=== PATIENT | male | born 1955 | race Caucasian/White ===

== ENCOUNTER 2019-03-28 23:06 | Emergency (ER) | payer OTHER ==
[~2019-03-28] VITALS: Ht 180.3 cm; Wt 95.0 kg
[2019-03-28] MEDS ORDERED: albuterol 2.5 MG/3 ML nebule NEB ONE (23:45)
[2019-03-28] MEDS ORDERED: methylPREDNISolone sod succ 125mg/2ml vial IV ONE (23:50)
[2019-03-28] MEDS ORDERED: normal saline 1000ML IV soln IVB ONE (23:50)
[2019-03-28] MEDS ORDERED: albuterol 2.5 mg/0.5ml nebule NEB ONE (23:50)
[2019-03-28] MEDS ORDERED: albuterol 2.5 MG/3 ML nebule ONE (23:58)
[2019-03-29] MEDS ORDERED: chlordiazePOXIDE 25mg capsule PO ONE (01:00)
[2019-03-29 01:04] LABS: RED CELL DISTRIBUTION WIDTH 13.9 % (11.5-14.5)
[2019-03-29 01:06] LABS: BASOPHILS % (AUTO) 0.6 % (0-1); EOSINOPHILS # (AUTO) 0.5 X10'3 (0-0.9); HEMATOCRIT 48.7 % (42.0-52.0); HEMOGLOBIN 16.6 g/dl (14.0-17.9); LYMPHOCYTES # (AUTO) 4.2 X10'3 (1.1-4.8); LYMPHOCYTES % (AUTO) 53.4 % (21-51); MEAN CORPUSCULAR HEMOGLOBIN 31.7 PG (27.0-31.0); MEAN CORPUSCULAR HGB CONC 34.1 g/dL (33.0-36.5); MEAN CORPUSCULAR VOLUME 93.2 FL (78-98); MEAN PLATELET VOLUME 8.1 FL (7.4-10.4); MONOCYTES # (AUTO) 0.8 X10'3 (0-0.9); MONOCYTES % (AUTO) 9.6 % (2-12); NEUTROPHILS # (AUTO) 2.3 X10'3 (1.8-7.7); NEUTROPHILS % (AUTO) 29.4 % (42-75); PLATELET COUNT 251 X10'3 (140-440); RED BLOOD COUNT 5.23 X10'6 (4.70-6.10); WHITE BLOOD COUNT 7.8 X10'3 (4.5-11.0)
[2019-03-29 01:13] LABS: PARTIAL THROMBOPLASTIN TIME 33 SECONDS (22-32)
[2019-03-29 01:14] LABS: ALANINE AMINOTRANSFERASE 39 U/L (12-78); ALBUMIN 4.1 G/DL (3.4-5.0); ALBUMIN/GLOBULIN RATIO 1.1 (1.1-1.5); ALKALINE PHOSPHATASE 53 IU/L (46-116); ANION GAP 10 (8-16); ASPARTATE AMINO TRANSFERASE 27 U/L (10-37); BILIRUBIN,TOTAL 0.6 MG/DL (0.1-1.0); BLOOD UREA NITROGEN 16 MG/DL (7-18); BUN/CREATININE RATIO 14.4 (5.4-32.0); CALCIUM 8.4 MG/DL (8.5-10.1); CHLORIDE 103 MMOL/L (99-107); CREATININE 1.11 MG/DL (0.60-1.10); GLUCOSE 90 MG/DL (70-104); MAGNESIUM 2.1 MG/DL (1.5-2.4); POTASSIUM 3.9 MMOL/L (3.5-5.1); SODIUM 142 MMOL/L (135-145); TOTAL CARBON DIOXIDE 29.3 MMOL/L (24-32); TOTAL PROTEIN 7.8 G/DL (6.4-8.2); eGFR 67 ML/MIN
[2019-03-29 01:41] LABS: URINE AMPHETAMINE SCREEN NEGATIVE (Neg); URINE BARBITUATE SCREEN NEGATIVE (Neg); URINE BENZODIAZEPINES SCREEN NEGATIVE (Neg); URINE CANNABINOID SCREEN NEGATIVE (Neg); URINE COCAINE SCREEN NEGATIVE (Neg); URINE METHADONE SCREEN NEGATIVE (Neg); URINE OPIATE SCREEN NEGATIVE (Neg); URINE PHENCYCLIDINE SCREEN NEGATIVE (Neg)
[2019-03-29] MEDS ORDERED: PRED20TA PO (01:41)
[2019-03-29] MEDS ORDERED: ALBU6.7H9 INH (01:41)
[2019-03-29] MEDS ORDERED: albuterol 2.5 mg/0.5ml nebule NEB ONE (01:45)
[2019-03-29] MEDS ORDERED: AZIT250T2 PO (01:48)
[2019-03-29] MEDS ORDERED: albuterol 2.5 MG/3 ML nebule NEB ONE (01:50)
--- NOTE | 2019-03-29 02:13 | NUR ---
pt received a 2nd neb treatment prior to dc. pt with friend at bedside for dc. dr. dobbs talking with pt prior to dc. pt with stable vs and reports he is feeling much better than when he first arrived.
[2019-03-29 02:14] VITALS: BP 110/71
[2019-03-29 02:47] LABS: PLATELET ESTIMATE NORMAL; TOTAL CELLS COUNTED 100
== END 2019-03-29 02:15 | disposition home or self-care (01) ==
LOC: ER 23:07
DX: J44.1 Chronic obstructive pulmonary disease with (acute) exacerbation (principal); F17.200 Nicotine dependence, unspecified, uncomplicated; Z79.2 Long term (current) use of antibiotics; Z79.899 Other long term (current) drug therapy
CPT/HCPCS: 36415; 71045; 80053; 80305; 80320; 83735; 84484; 85025; 85610; 85730; 93005; 94640; 94760; 96374; 99284; J2930; J7030; J7611